=== PATIENT | female | born 1980 | race Caucasian/White ===

== ENCOUNTER 2020-02-15 19:38 | Observation (INO) | payer OTHER, SELFPAY ==
--- NOTE | ~2020-02-15 | CT_ITS ---
EXAMINATION: CTA chest PE protocol EXAM DATE: 02/16/2020 14:54 INDICATION: Tachycardia, mid chest pain. TECHNIQUE: Spiral CTA of the chest (pulmonary arteries) was performed with 100 cc Omnipaque 350 intr avenous contrast injection. Images were acquired during the pulmonary arterial phase. Coronal maxi mum intensity projection 3D-reconstructions were created by the technologist on dedicated workstation . Axial, coronal and sagittal reformatted images were reviewed. The dose-length product (DLP) for t his examination was 144.05 mGy-cm. The exposure was tailored according to patient size (auto mA exp osure control), and iterative reconstruction (ASIR) was used as additional dose reduction technique. There is no prior study for comparison. FINDINGS: Pulmonary arteries are well opacified and without intraluminal filling defects. No thora cic aortic dissection. The lungs are clear. There are no pleural or pericardial effusions. Trach eobronchial tree is patent. There is no mediastinal, hilar or axillary lymphadenopathy. There is no pneumothorax. Heart normal in size. No evidence of coronary arterial calcification. Upper abd omen is unremarkable. There is thoracic spondylosis without osteoblastic or osteolytic lesions iden tified. IMPRESSION: Normal CT pulmonary examination. Reviewed, dictated and finalized at location B.
[2020-02-15 19:43] LABS: Glucose Point of Care 461 (65-105)
[2020-02-15 20:10] VITALS: BP 113/83; PULSE 125; RESP 22; TEMP 37; O2SAT 100
[2020-02-15 20:26] LABS: Basophils Percent Auto 0.4 % (0.2-1.2); Eosinophils Absolute Auto 0.1 K/mm3 (0-0.3); Eosinophils Percent Auto 1.7 % (0-4.4); Hematocrit 42.9 % (37.0-47.0); Hemoglobin 15.5 g/dL (12.0-15.0); Immature Granulocyte Absolute 0.01 K/mm3 (0.00-0.031); Immature Granulocyte Percent A 0.2 % (0-0.5); Lymphocytes Absolute Auto 1.62 K/mm3 (0.9-3.2); Lymphocytes Percent Auto 34.1 % (18.3-44.2); Mean Corpuscular HGB Conc 36.1 g/dl (32-36); Mean Corpuscular Hemoglobin 31.5 pg (26-34); Mean Corpuscular Volume 87.2 fl (80-100); Mean Platelet Volume 10.1 fl (7.4-10.4); Monocytes Absolute Auto 0.3 K/mm3 (0.1-0.6); Monocytes Percent Auto 6.5 % (2.6-8.5); Neutrophils Absolute Auto 2.7 K/mm3 (1.3-6.7); Neutrophils Percent Auto 57.1 % (45.5-73.1); Platelet Count Result 323 k/mm3 (150-375); Red Blood Count 4.92 M/mm3 (4.2-5.4); Red Cell Distribution Width 11.3 % (11.5-14.5); White Blood Count 4.8 K/mm3 (4.5-10.0)
[2020-02-15 21:06] LABS: Basophils Percent Auto 0.4 % (0.2-1.2); Eosinophils Absolute Auto 0.1 K/mm3 (0-0.3); Eosinophils Percent Auto 1.8 % (0-4.4); Hematocrit 41.4 % (37.0-47.0); Hemoglobin 14.9 g/dL (12.0-15.0); Immature Granulocyte Absolute 0.01 K/mm3 (0.00-0.031); Immature Granulocyte Percent A 0.2 % (0-0.5); Lymphocytes Absolute Auto 1.33 K/mm3 (0.9-3.2); Lymphocytes Percent Auto 29.7 % (18.3-44.2); Mean Corpuscular Hemoglobin 31.8 pg (26-34); Mean Corpuscular Volume 88.5 fl (80-100); Monocytes Absolute Auto 0.4 K/mm3 (0.1-0.6); Monocytes Percent Auto 7.8 % (2.6-8.5); Neutrophils Absolute Auto 2.7 K/mm3 (1.3-6.7); Neutrophils Percent Auto 60.1 % (45.5-73.1); Platelet Count Result 299 k/mm3 (150-375); Red Blood Count 4.68 M/mm3 (4.2-5.4); Red Cell Distribution Width 11.7 % (11.5-14.5); White Blood Count 4.5 K/mm3 (4.5-10.0)
[2020-02-15 21:22] LABS: Beta-Hydroxybutyrate/Acetoacetate 2.85 mmol/L (0.02-0.27)
[2020-02-15 21:25] LABS: Alanine Aminotransferase 25 U/L (4-35); Albumin Level 4.2 g/dL (3.5-5.1); Alkaline Phosphatase 129 U/L (38-126); Aspartate Amino Transferase 30 U/L (14-36); Bilirubin,Total 0.4 mg/dL (0.2-1.3); Blood Urea Nitrogen 9 mg/dL (7-17); Calcium 8.9 mg/dL (8.4-10.2); Carbon Dioxide 26 mmol/L (22-30); Chloride 95 mmol/L (98-107); Estimated CRCL calculation 150 ml/min; Estimated Glomerular Filt Rate > 60; Glucose 538 mg/dL (65-105); Magnesium 1.7 mg/dL (1.6-2.3); Phosphorus 4.1 mg/dL (2.5-4.5); Potassium 3.2 mmol/L (3.4-5.0); Sodium 134 mmol/L (137-145)
[2020-02-15 22:35] LABS: Add Urine Microscopic? YES; Appearance Urine Clear (Clear); Bilirubin Urine Negative (Negative); Blood Urine Negative (Negative); Color Urine Colorless (Yellow); Glucose Urine UA 3+ mg/dL (Negative); Ketones Urine 2+ mg/dL (Negative); Leukocyte Esterase Ur Negative LEU/UL (Negative); Mucus Urine Rare /lpf; Nitrate Urine Negative (Negative); Protein Urine Negative (Negative); RBC Urine 0-2 /hpf (0-2); Squamous Epithelial Cell Urine Rare /hpf (Few); Urobilinogen Urine Negative mg/dL (<2.0); WBC Urine 0-3 /hpf
[2020-02-15 22:40] LABS: Specific Grav Ur 1.039 (1.001-1.035)
[2020-02-15 22:55] LABS: Alveolar/Arterial O2 Gradient 12.6 mmHg; Base Excess ABG -1.6 mEq/l (+/-2.0); Carboxyhemoglobin 0.5 % THb (0-2.0); Fractional Inspired Oxygen 21 %; HCO3 ABG 22.4 mEq/l (22.0-26.0); Methemoglobin ABG 0.4 %THb (0-1.5); Oxygen Content ABG 19.6 %vol (16.0-22.0); Oxygen Saturation ABG 97.4 % (95.0-100.0); Oxyhemoglobin 95.9 % THb (90.0-100.0); PCO2 ABG 35.5 mmHg (35.0-45.0); PO2 ABG 94.6 mmHg (80.0-100.0); Reduced Hemoglobin 3.2 %THb (0-5.0); Total Hemoglobin 14.5 g/dL (12.0-18.0); pH ABG 7.417 (7.350-7.450)
[2020-02-15 22:57] LABS: Device ROOM AIR; Site Drawn LEFT BRACHIAL
[2020-02-15] MEDS: SODIUM CHLORIDE 0.9% IV 1,000 ML 999 ML IV CONT (23:28)
[2020-02-16] VITALS (9 sets, daily range): BP systolic 106–124; BP diastolic 58–80; PULSE 84–112; RESP 16–20; TEMP 36.6–37.7; O2SAT 90–100; BMI 19.7
--- NOTE | 2020-02-16 00:01 | ED.GENADULT ---
HPI - General Adult General Chief complaint: Recheck/Abnormal Lab/Rx Stated complaint: abnormal labs, possible new diabetic Time Seen by Provider: 02/15/20 22:08 History of Present Illness HPI narrative: Patient is a 39-year-old female who presents the ER with abnormal outpatient labs. Reports that she has been without a normal period since March. She is being worked up by Dr. Abreu and found that her hemoglobin A1c was 14%. Patient reports she has had polydipsia and polyuria. She feels like she has [place] at this time. She reports 15 pound weight loss over the last year. She is also recently been diagnosed with celiac disease and has daily diarrhea. Patient does report she has had increased blurring of vision over the last couple of months and is set to see an eye doctor tomorrow. Related Data Home Medications Medication Instructions Recorded Confirmed multivit with min-folic acid 0.4 mg PO DAILY 02/16/20 02/16/20 [Adult One Daily Multivitamin] thiamine HCl (vitamin B1) 100 mg PO DAILY 02/16/20 02/16/20 Allergies Allergy/AdvReac Type Severity Reaction Status Date / Time codeine Allergy Unknown Hives Verified 02/16/20 01:12 gluten Allergy Gastrointestinal Verified 02/16/20 01:12 Upset ibuprofen Allergy Anaphylaxis Verified 02/16/20 01:53 Review of Systems Review of Systems: All systems reviewed & are unremarkable except as noted in HPI and below Constitutional: Constitutional: Denies chills, Denies fever(s) and Denies weakness ENT: Denies nasal congestion and Denies sore throat Cardiovascular: Cardiovascular: Denies chest pain Respiratory: Respiratory: Denies cough, Denies dyspnea and Denies wheezing Gastrointestinal: Gastrointestinal: Denies abdominal pain, Reports diarrhea, Denies nausea and Denies vomiting Genitourinary: Genitourinary: Reports nocturia and Denies dysuria Endocrine: Endocrine: Reports polydipsia and Reports polyuria PMF Past Medical History Medical History (Updated 02/16/20 @ 02:35 by Juan Johnston MD) Celiac disease Surgical History Surgical History (Updated 02/16/20 @ 01:19 by Saulo Rosales MD) No pertinent past surgical history Family History Family History (Updated 02/16/20 @ 02:09 by Olamide Arechiga RN) Father Hypertension Grandparent Diabetes mellitus Goiter Mother Hyperthyroidism Other Breast cancer Sibling Lupus Bipolar 1 disorder Autism Social History Social History Smoking status: Never smoker Alcohol intake: current Drinks per week: 1 Substance use: never Substance use type: does not use Gender identity (if verbalized by the patient): Female Spiritual care concerns: No Exam Narrative: Exam Narrative: GENERAL: Well-appearing, well-nourished, and in no acute distress. HEAD: Normocephalic, atraumatic. EYES: PERRL and left eye strabismus CHEST: Clear to auscultation. No respiratory distress. HEART: Tachycardic and regular. normal peripheral pulses. ABDOMEN: Soft, nontender, nondistended. EXTREMITIES: Normal range of motion. No edema. SKIN: Warm, dry, no rash. NEURO: Alert and oriented x3. PSYCH: Normal mood and affect. Course Course Emergency Course: Glucose going down with hydration. Admit to hospital service for observation and diabetic management. Vital Signs Vital signs: Vital Signs Temperature 98.6 F 02/15/20 20:10 Pulse Rate 125 H 02/15/20 20:10 Respiratory Rate 22 H 02/15/20 20:10 Blood Pressure 113/83 02/15/20 20:10 Pulse Oximetry 100 02/15/20 20:10 Temperature 99.0 F 02/16/20 01:30 Pulse Rate 112 H 02/16/20 01:44 Respiratory Rate 20 02/16/20 01:44 Blood Pressure 118/67 02/16/20 01:44 Pulse Oximetry 100 02/16/20 01:44 Medical Decision Making Vital Signs Vital Signs: Vital Signs Temperature 98.6 F 02/15/20 20:10 Pulse Rate 125 H 02/15/20 20:10 Respiratory Rate 22 H 02/15/20 20:10 Blood Pressure 113/83 02/15/20 20:10 Pulse
[2020-02-16 00:16] LABS: Glucose Point of Care 308 (65-105)
[2020-02-16] MEDS: SODIUM CHLORIDE 0.9% IV 1,000 ML 999 ML IV CONT (00:17)
--- NOTE | 2020-02-16 01:41 | ADMGEN ---
This patient, John Campos, was admitted to [facility] Surg Room 319-01 on 02/16/2020 at 0130. Patient/family oriented to hospital policies and general routines including ID bracelet, bed and alarms, visiting hours, pain management, procedures, bathroom and other care routines, personal items, smoking policy, room service/diet, and visiting hours. Valuables list has been completed. Information on how to activate the Rapid Response Team has been discussed. Patient/Family are encouraged to report perceived risks to care and to ask questions if they do not understand what they are told or what they should do.
[2020-02-16] MEDS: SODIUM CHLORIDE 0.9% IV 1,000 ML 125 ML IV CONT (01:54)
--- NOTE | 2020-02-16 02:16 | PM.IMHP ---
H&P: HPI History of Present Illness Chief complaint: hyperglycemia Narrative: This is a pleasant 39 year old female with known history of celiac disease who has been seeing gynecology secondary to not having a menstrual period since this past March. The patient has had increased thirst and increased urinary frequency over the past few months. She also reports a 10 pound weight lost since September. She also has had 6 yeast infections over the course of this past year. The patient has only recently been diagnosed with celiac disease. Her OIL AND GAS SUPERINTENDENT checked her HgbA1c which came back at 14%. Tonight in the ER the patient was evaluted and found to have an elevated blood glucose of 538 mg/dl and positive serum ketones. At this time her anion gap is not elevated. The patient was treated with 2 liters of normal saline IV in the ER. She also reports diarrhea, lower extremity numbness and blurry vision recently. She denies any fevers, chills, shortness of breath, chest pain, abdominal pain, nausea, vomiting, dysuria, or rectal bleeding. Review of Systems Review of Systems: All systems reviewed & are unremarkable except as noted in HPI and below PMFSH Past Medical History Medical History (Updated 02/16/20 @ 02:35 by Juan Johnston MD) Celiac disease Surgical History Surgical History (Updated 02/16/20 @ 01:19 by Saulo Rosales MD) No pertinent past surgical history Family History Family History (Updated 02/16/20 @ 02:09 by Olamide Arechiga RN) Father Hypertension Grandparent Diabetes mellitus Goiter Mother Hyperthyroidism Other Breast cancer Sibling Lupus Bipolar 1 disorder Autism Social History Social History Smoking status: Never smoker Alcohol intake: current Drinks per week: 1 Substance use: never Substance use type: does not use Gender identity (if verbalized by the patient): Female Spiritual care concerns: No Meds Home Medications and Allergies Home Medications Medication Instructions Recorded Confirmed Type multivit with min-folic acid 0.4 mg PO DAILY 02/16/20 02/16/20 History [Adult One Daily Multivitamin] thiamine HCl (vitamin B1) 100 mg PO DAILY 02/16/20 02/16/20 History Allergies Allergy/AdvReac Type Severity Reaction Status Date / Time codeine Allergy Unknown Hives Verified 02/16/20 01:12 gluten Allergy Gastrointestinal Verified 02/16/20 01:12 Upset ibuprofen Allergy Anaphylaxis Verified 02/16/20 01:53 Vital Signs Vital Signs - 24 hr 02/15/20 20:10 02/16/20 00:10 02/16/20 01:44 Temperature 37.0 C Pulse Rate 125 H 98 112 H Respiratory Rate 22 H 20 20 Blood Pressure 113/83 117/58 L 118/67 Pulse Oximetry 100 99 100 02/16/20 01:53 Temperature 37.2 C Pulse Rate 92 Respiratory Rate 16 Blood Pressure 124/80 Pulse Oximetry 100 Exam Const: General: cooperative, alert and awake Nutritional Appearance: thin and underweight Orientation/consciousness: patient oriented x3 HENMT: Head: normal to inspection General nose exam: Normal external nose present Face and sinus: normal facial exam Mouth: Yes oropharynx normal and Yes other (dry mucous membranes++ ) Eyes: Pupils: Equal, round and reactive pupils present EOM: EOMs intact bilaterally Neck: Neck: supple and no JVD Thyroid: thyroid normal Lymphatic: lymphadenopathy not noted Resp: Effort & Inspection: normal respiratory effort Auscultation: clear to auscultation bilaterally Cardio: Rate: tachycardic Rhythm: regular rhythm Heart sounds: no murmurs GI: Inspection: normal to inspection Auscultation: normal bowel sounds Skin: General skin exam: normal color and no rashes or lesions noted Neuro: General: patient oriented x3 Cranial nerves: Yes CN's II-XII intact bilaterally and Yes Equal, round and reactive pupils present Speech: normal speech Motor exam (neuro): 5/5 motor strength present throughout Sensory Exam: normal sensation Extrem: General: normal t
[2020-02-16] MEDS: POTASSIUM CHLORIDE 20 MEQ TABLET 40 MEQ PO ×2 (03:03→08:41)
--- NOTE | 2020-02-16 05:20 | PC.NURSE ---
para educator notified for consult (left voicemail).
[2020-02-16 06:31] LABS: Basophils Percent Auto 0.5 % (0.2-1.2); Eosinophils Absolute Auto 0.1 K/mm3 (0-0.3); Eosinophils Percent Auto 1.1 % (0-4.4); Hematocrit 35.4 % (37.0-47.0); Hemoglobin 12.7 g/dL (12.0-15.0); Immature Granulocyte Absolute 0.01 K/mm3 (0.00-0.031); Immature Granulocyte Percent A 0.2 % (0-0.5); Lymphocytes Absolute Auto 1.54 K/mm3 (0.9-3.2); Lymphocytes Percent Auto 35.2 % (18.3-44.2); Mean Corpuscular HGB Conc 35.9 g/dl (32-36); Mean Corpuscular Hemoglobin 31.8 pg (26-34); Mean Corpuscular Volume 88.5 fl (80-100); Mean Platelet Volume 9.9 fl (7.4-10.4); Monocytes Absolute Auto 0.3 K/mm3 (0.1-0.6); Monocytes Percent Auto 7.8 % (2.6-8.5); Neutrophils Absolute Auto 2.4 K/mm3 (1.3-6.7); Neutrophils Percent Auto 55.2 % (45.5-73.1); Platelet Count Result 249 k/mm3 (150-375); Red Cell Distribution Width 11.2 % (11.5-14.5); White Blood Count 4.4 K/mm3 (4.5-10.0)
[2020-02-16 06:44] LABS: Blood Urea Nitrogen 6 mg/dL (7-17); Calcium 7.6 mg/dL (8.4-10.2); Carbon Dioxide 20 mmol/L (22-30); Chloride 104 mmol/L (98-107); Estimated CRCL calculation 224 ml/min; Estimated Glomerular Filt Rate > 60; Glucose 274 mg/dL (65-105); Potassium 3.3 mmol/L (3.4-5.0); Sodium 134 mmol/L (137-145)
[2020-02-16] MEDS: INSULIN ASPART (*BKC) 100 UNITS/ML SUB-Q ×3 (08:36→17:21)
[2020-02-16] MEDS: SODIUM CHLORIDE 0.9% IV 1,000 ML 75 ML IV CONT (08:42)
[2020-02-16] MEDS: INSULIN GLARGINE (*BKC) 100 UNITS/ML SUB-Q (08:44)
[2020-02-16] MEDS: THIAMINE HCL 100 MG TABLET PO (08:45)
[2020-02-16] MEDS: THERAPEUTIC MULTIVITAMINS/MINERALS TAB (*BKC) 1 TABLET PO (08:46)
[2020-02-16 08:53] LABS: Glucose Point of Care 240 (65-105)
[2020-02-16 10:09] LABS: Magnesium 1.4 mg/dL (1.6-2.3)
[2020-02-16] MEDS: MAGNESIUM SULFATE 3GM/D5W100ML 3 GM/100 ML BAG IVPB (13:16)
--- NOTE | 2020-02-16 13:56 | PM.IMPN ---
Progress Note: A&P Assessment and Plan (1) Hyperglycemia: Code(s): R73.9 - Hyperglycemia, unspecified Status: Acute Assessment and Plan: Secondary to uncontrolled newly diagnosed diabetes mellitus w/ HgbA1c of 14%. Serum glucose this morning was 274. I started her on Lantus 5 units subcu daily and continue the sliding scale insulin. in service educator has been consulted as well as the dietitian. Accuchecks, SSI Coverage, Continue IV hydration. Hypoglycemic protocol in place. She has an appointment with endocrinology in March. (2) Dehydration: Code(s): E86.0 - Dehydration Status: Acute Assessment and Plan: She reports feeling better after receiving IV fluids. Continue IV hydration. Monitor urine output and vital signs. (3) Hypokalemia: Code(s): E87.6 - Hypokalemia Status: Acute Assessment and Plan: KCL replacmeent. Monitor serum potassium. (4) Hypomagnesemia: Code(s): E83.42 - Hypomagnesemia Status: Acute Assessment and Plan: Mag was 1.4 this was replaced with magnesium IV 3 g. Will recheck magnesium in the morning. (5) Celiac disease: Code(s): K90.0 - Celiac disease Status: Chronic Assessment and Plan: gluten free diet. Additional Plan Date of service was 02/16/2020 at 01:30 hrs. Time Spent With Patient Time with patient: 25 - 35 minutes Subjective Date/time seen: 02/16/20 13:56 Interval history: Patient is a 39-year-old woman with a history of glucose intolerance, who presented to the emergency room after abnormal labs showed her serum glucose to be in the 400s, along with associated symptoms of frequent urination, increased thirst, weight loss, blurry vision, and numbness and tingling to her toes. Date of service 02/16/2020: Patient reports feeling better today after getting IV fluids overnight. She states after she has received the IV magnesium she feels like she has some palpitations, slight shortness of breath, and pain with taking a deep breath located to her right upper middle chest wall. Denies any pain to palpation of her chest wall. 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 She denies any fevers, chills, cough, nausea, vomiting, abdominal pain, constipation, leg swelling, calf pain or any other symptoms at this time. Review of Systems Review of Systems: All systems reviewed & are unremarkable except as noted in HPI and below Exam Narrative: Exam Narrative: General: 39-year-old woman sitting up in bed watching TV. Appears comfortable. In no acute distress. Skin: No jaundice or cyanosis. Good skin turgor. Neck: Full range of motion. Supple. Respiratory: Lungs are clear to auscultation bilaterally. No wheezing, rales or rhonchi. No bony chest wall tenderness. Cardiovascular: Slight tachycardic heart rate, regular rhythm, no murmur auscultated. Lower extremities: No lower extremity edema. Distal pulses are easily palpated. No calf tenderness to palpation. Gastrointestinal: The abdomen is soft, nontender and nondistended with active bowel sounds. Psychiatric: Lucid and oriented. Memory intact. Neurologic: No focal deficits. Speech is clear. No facial drooping. Objective Data Vital Signs Vital Signs: Vital Signs - 24 hr 02/15/20 20:10 02/16/20 00:10 02/16/20 01:30 Temperature 98.6 F 99.0 F Pulse Rate 125 H 98 92 Respiratory Rate 22 H 20 16 Blood Pressure 113/83 117/58 L 124/80 Pulse Oximetry 100 99 100 02/16/20 01:44 02/16/20 06:20 02/16/20 07:29 Temperature 99.4 F Pulse Rate 112 H 99 91 Respiratory Rate 20 20 18 Blood Pressure 118/67 116/74 Pulse Oximetry 100 90 97 02/16/20 10
--- NOTE | 2020-02-16 16:24 | PCDIET ---
Nutrition Consult for [facility] Complete: Pt current nutrition is DBCC/Gluten Free Nutrition recommendation: Agree Last recorded weight is 52.2 kg. Bowel Motility: Labs Reviewed:A1c 14 Glucose 240 Additional Notes: Pt was recently dx with celiac disease in July and now DM. 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 [facility] provided on a DBCC diet. Handouts and contact info provided. Pt encouraged to f/u in the outpatient center after d/c. We reviewed where carbs are found, importance of protein at meals, and eating consistently, as well as how to find carb amounts in foods and her needs per meal (45-60g). We reviewed resources for carb counting and recipes as well as baking with artificial sweeteners and making fun foods fit in a meal. We will continue to monitor every seven days.
[2020-02-16 17:20] LABS: Glucose Point of Care 303 (65-105)
[2020-02-16 17:24] LABS: Glucose Point of Care 233 (65-105)
[2020-02-16 20:06] LABS: Glucose Point of Care 276 (65-105)
[2020-02-17] MEDS: SODIUM CHLORIDE 0.9% IV 1,000 ML 75 ML IV CONT (02:14)
[2020-02-17] MEDS: INSULIN ASPART (*BKC) 100 UNITS/ML SUB-Q ×2 (03:15→12:50)
[2020-02-17 06:00] VITALS: BP 105/63; PULSE 85; RESP 18; TEMP 36.7; O2SAT 99
[2020-02-17 06:43] LABS: Hematocrit 40.4 % (37.0-47.0); Hemoglobin 13.9 g/dL (12.0-15.0); Mean Corpuscular HGB Conc 34.4 g/dl (32-36); Mean Corpuscular Hemoglobin 30.8 pg (26-34); Mean Corpuscular Volume 89.6 fl (80-100); Mean Platelet Volume 9.6 fl (7.4-10.4); Platelet Count Result 269 k/mm3 (150-375); Red Blood Count 4.51 M/mm3 (4.2-5.4); Red Cell Distribution Width 11.3 % (11.5-14.5); White Blood Count 5.1 K/mm3 (4.5-10.0)
[2020-02-17 06:55] LABS: Blood Urea Nitrogen 6 mg/dL (7-17); Calcium 8.6 mg/dL (8.4-10.2); Carbon Dioxide 22 mmol/L (22-30); Chloride 104 mmol/L (98-107); Estimated CRCL calculation 224 ml/min; Estimated Glomerular Filt Rate > 60; Glucose 280 mg/dL (65-105); Magnesium 1.7 mg/dL (1.6-2.3); Potassium 3.5 mmol/L (3.4-5.0); Sodium 135 mmol/L (137-145)
[2020-02-17 08:00] VITALS: O2SAT 99
[2020-02-17] MEDS: THERAPEUTIC MULTIVITAMINS/MINERALS TAB (*BKC) 1 TABLET PO (08:21)
[2020-02-17] MEDS: THIAMINE HCL 100 MG TABLET PO (08:22)
[2020-02-17 08:57] LABS: Glucose Point of Care 247 (65-105)
[2020-02-17] MEDS: MAGNESIUM SULF 2 GM/WATER 50ML 2 GM/50 ML BAG IVPB (09:14)
[2020-02-17] MEDS: POTASSIUM CHLORIDE 20 MEQ TABLET 40 MEQ PO (09:15)
[2020-02-17] MEDS: INSULIN GLARGINE (*BKC) 100 UNITS/ML 8 UNITS SUB-Q (09:17)
[2020-02-17 10:45] VITALS: BMI 19.7
[2020-02-17 13:07] LABS: Glucose Point of Care 259 (65-105)
--- NOTE | 2020-02-17 13:31 | PM.DS ---
DS: Admitting Diagnosis Admitting Diagnosis Admitting Diagnosis: Hyperglycemia, unspecified DS: Discharge Diagnosis Discharge Diagnosis (1) Diabetes mellitus, new onset: Code(s): E11.9 - Type 2 diabetes mellitus without complications Status: Acute Assessment and Plan: Secondary to uncontrolled newly diagnosed diabetes mellitus w/ HgbA1c of 14%. Serum glucose this morning was 280. I increased her to Lantus 8 units subcu daily and continue the sliding scale insulin. clinical staff educator has been consulted and evaluated the patient this afternoon. She educated patient on checking her glucose and educated herself on giving herself insulin injections with a pen. The patient states she does have a little bit of a needle phobia but she will be able to check her glucose and give herself her insulin without any issues. Patient states she has a follow-up appointment with radio control crane operator, Dr. Hagan, in March for further evaluation. She will follow-up with the parent educator and dietitian as an outpatient for further Education. She also needs to follow-up the primary care provider within 1 week of discharge for further evaluation and adjustments to be made on her insulin if necessary. The patient understands and agrees the plan all questions answered. (2) Dehydration: Code(s): E86.0 - Dehydration Status: Acute Assessment and Plan: She reports feeling better after receiving IV fluids. Stable for discharge (3) Hypokalemia: Code(s): E87.6 - Hypokalemia Status: Acute Assessment and Plan: KCL replacmeent. It is now stable at this time. (4) Hypomagnesemia: Code(s): E83.42 - Hypomagnesemia Status: Acute Assessment and Plan: Mag was 1.7 this was replaced with magnesium IV 2 g. It is stable at this time. (5) Celiac disease: Code(s): K90.0 - Celiac disease Status: Chronic Assessment and Plan: gluten free diet. (6) Chest pain: Code(s): R07.9 - Chest pain, unspecified Status: Acute Assessment and Plan: Yesterday during my examination she reported having substernal/right-sided chest discomfort when she took a deep breath. She also felt like her heart was racing and she was found to be slightly tachycardic. I ordered a CTA of her chest which was normal not showing any acute PEs, pneumonia or other abnormality. Today she denied any more chest discomfort or issues at this time. DS: Summary Hospital Course Reason for hospitalization: 39-year-old woman with a history of gluten intolerance, and was told by her primary care provider she is borderline diabetic in March 2019, presented to the emergency room with symptoms of increased thirst, increased urination frequency, weight loss, over the last few months. Initial vital signs showed temperature of 98.6?, blood pressure 113/83, tachycardic heart rate 125, respiratory rate 22, oxygen saturation 100% on room air. Labs showed normal CBC with differential, normal ABG, hyponatremia at 134, hypokalemia 3.2, serum glucose was 538. Beta hydroxybutyrate/acetoacetate 2.85. UA showed 3+ glucose, 2+ ketones. She Was admitted into the hospital with new diagnosis of diabetes, started on IV fluids for hydration, insulin, with a consult placed to parent educator and dietitian. Please see above under each diagnosis what transpired during her admission. Status at Discharge Cognitive/behavioral status at discharge: Stable, improved. Time Spent with Patient Time attestation: Total time spent providing and/or coordinating discharge services: Time spent: Greater than 30 minute
[2020-02-17 14:00] VITALS: BP 104/69; PULSE 93; RESP 18; TEMP 36.3; O2SAT 100
== END 2020-02-17 16:25 | disposition home or self-care (01) ==
LOC: ANHED 02-16 00:59 → ANH3MEDSUR 02-16 01:18
PROVIDERS: Physician Assistant; Admitting Provider Family Medicine; Emergency Provider Emergency Medicine; Visit Provider Internal Medicine
DX: E11.65 Type 2 diabetes mellitus with hyperglycemia (principal); K90.0 Celiac disease; E86.0 Dehydration; E87.6 Hypokalemia; E83.42 Hypomagnesemia; R07.9 Chest pain, unspecified
CPT/HCPCS: 36415; 36600; 71275; 80048; 80053; 81001; 81025; 82010; 82375; 82805; 83050; 83735; 84100; 85025; 85027; 96360; 96361; 96365; 96374; 99285; A9270; G0378; J1815; J3475; J7030; Q9967

== ENCOUNTER 2022-07-04 01:18 | Day surgery (SDC) | payer OTHER, SELFPAY ==
[2022-07-02 13:17] VITALS: BMI 24.9
[2022-07-04 08:25] VITALS: BP 128/79; PULSE 103; RESP 18; TEMP 37.1; O2SAT 99
--- NOTE | 2022-07-04 08:26 | SUR.PREOP ---
[facility] blood glucose reading 202 per patient. No need to recheck her blood sugar per Dr Landeros.
[2022-07-04] MEDS: LACTATED RINGERS 1,000 ML 150 ML IV CONT (08:28)
--- NOTE | 2022-07-04 08:54 | WPDANESEPPF ---
Anes - Initial Pre Proc Eval Procedure: Operation Date: 07/04/22 09:00 Proposed Procedures p Esophagogastroduodenoscopy EGD - Suleiman Bella MD Date/Time: 07/04/22 08:54 Surgeon: Suleiman Bella MD Pre Op Diagnosis: gastroparesis Patient Data Age: 41 Gender: F Height: 1.63 m Weight: 67.8 kg Last Vital Signs Temp 98.7 F 07/04/22 08:25 Pulse 103 H 07/04/22 08:25 Resp 18 07/04/22 08:25 BP 128/79 07/04/22 08:25 Pulse Ox 99 07/04/22 08:25 O2 Del Method Room Air 07/04/22 08:25 Allergies Allergy/AdvReac Type Severity Reaction Status Date / Time ibuprofen Allergy Severe Anaphylaxis Verified 07/02/22 13:14 codeine Allergy Unknown Hives Verified 07/02/22 13:14 gluten Allergy Unknown Gastrointestinal Verified 07/02/22 13:14 Upset Penicillins Allergy Unknown Verified 07/04/22 08:21 Sulfa (Sulfonamide Allergy Unknown Verified 07/04/22 08:21 Antibiotics) Home Medications Medication Instructions Recorded Confirmed Type multivitamin with minerals-folic 0.4 mg PO DAILY 02/16/20 07/02/22 History acid 0.4 mg tablet (Adult One Daily Multivitamin) thiamine HCl (vitamin B1) 100 mg 100 mg PO DAILY 02/16/20 07/02/22 History tablet duloxetine 20 mg capsule,delayed 20 mg PO DAILY #30 caps 03/08/21 07/02/22 Rx release gabapentin 300 mg capsule 600 mg PO TID 03/08/21 07/02/22 History insulin aspar prt-insulin aspart 1 sliding scale dose subcut 04/05/22 07/02/22 History 100 unit/mL (70-30) subcutaneous USEASDIRECTD soln (Novolog Mix 70-30 U-100 Insuln) insulin glargine 100 unit/mL (3 18 unit subcut BID 07/02/22 07/02/22 History mL) subcutaneous pen (Basaglar KwikPen U-100 Insulin) Patient hx anesthesia problems: none Family hx anesthesia problems: none Results Review: All pre-operative results and documents have been reviewed as part of the pre-operative evaluation. PMFSH Past Medical History Medical History (Updated 04/05/22 @ 15:03 by Suleiman Bella MD) Bloating Depression Joint pain Surgical History Surgical History H/O eye surgery No pertinent past surgical history Family History Family History Father Hypertension Grandparent Diabetes mellitus Goiter Mother Hyperthyroidism Other Breast cancer Sibling Lupus Bipolar 1 disorder Autism Social History Social History (Updated 04/05/22 @ 14:41 by Elizabeth Martinez CMA) Smoking status: Never smoker Alcohol intake: current Drinks per week: 1 Alcohol use details: social Substance use: never Living arrangements: with family Gender identity (if verbalized by the patient): Female Spiritual care concerns: No Anes - Eval Final PreProcedure Day of Procedure 07/04/22 08:54 Patient weight: normal Heart: regular rate and rhythm Lungs: clear to auscultation Airway: Mallampati scale class II Neurological: alert and oriented Last oral intake: >/= 8 hours ASA classification: II Emergent: no Anesthetic plan: proceed Anesthesia type and monitoring: general GIVS and standard monitoring Results Review: All pre-operative results and documents have been reviewed as part of the pre-operative evaluation. Informed Consent: The patient's anesthetic plan and its attendant risks and benefits were discussed with the patient/family/POA. Questions were solicited and answers provided to the satisfaction of the patient/family/POA.
--- NOTE | 2022-07-04 09:20 | PM.HPGS ---
History of Present Illness History of Present Illness Consent: Risks, benefits, and alternatives have been discussed and questions answered. Patient agrees to proceed with procedure. Chief complaint: gastroparesis Narrative: Jonh Campos is a 41 year old female with DM and diagnosed with gastroparesis, also with bloating and was told that had celiac allery by blood test- on a special diet but never had egd Review of Systems Constitutional: Constitutional: Denies headache(s) and Denies weakness Eyes: Eyes: Denies blurry vision ENT: Reports Normal hearing present, Denies headache(s) and Denies neck pain Cardiovascular: Cardiovascular: Denies chest pain and Denies dyspnea Respiratory: Respiratory: Denies dyspnea Gastrointestinal: Gastrointestinal: Reports no additional gastrointestinal complaints Genitourinary: Genitourinary: Denies dysuria Musculoskeletal: Musculoskeletal: Denies neck pain Integumentary/Breasts: Skin/Breast: Denies dry skin Neurologic: Reports Normal hearing present, Denies headache(s) and Denies weakness Psychiatric: Psychiatric: Denies anxiety Endocrine: Endocrine: Denies change in body appearance Hematologic/Lymphatic: Hematologic/Lymphatic: Denies easy bleeding Allergic/Immunologic: Allergic/Immunologic: Denies urticaria PMFSH Past Medical History Medical History (Updated 07/04/22 @ 09:21 by Suleiman Bella MD) Bloating Depression Gluten-sensitive enteropathy Joint pain Surgical History Surgical History H/O eye surgery No pertinent past surgical history Family History Family History Father Hypertension Grandparent Diabetes mellitus Goiter Mother Hyperthyroidism Other Breast cancer Sibling Lupus Bipolar 1 disorder Autism Social History Social History (Updated 04/05/22 @ 14:41 by Elizabeth Martinez [facility]) Smoking status: Never smoker Alcohol intake: current Drinks per week: 1 Alcohol use details: social Substance use: never Living arrangements: with family Gender identity (if verbalized by the patient): Female Spiritual care concerns: No Meds Home Medications and Allergies Home Medications Medication Instructions Recorded Confirmed Type multivitamin with minerals-folic 0.4 mg PO DAILY 02/16/20 07/02/22 History acid 0.4 mg tablet (Adult One Daily Multivitamin) thiamine HCl (vitamin B1) 100 mg 100 mg PO DAILY 02/16/20 07/02/22 History tablet duloxetine 20 mg capsule,delayed 20 mg PO DAILY #30 caps 03/08/21 07/02/22 Rx release gabapentin 300 mg capsule 600 mg PO TID 03/08/21 07/02/22 History insulin aspar prt-insulin aspart 1 sliding scale dose subcut 04/05/22 07/02/22 History 100 unit/mL (70-30) subcutaneous USEASDIRECTD soln (Novolog Mix 70-30 U-100 Insuln) insulin glargine 100 unit/mL (3 18 unit subcut BID 07/02/22 07/02/22 History mL) subcutaneous pen (Basaglar KwikPen U-100 Insulin) Allergies Allergy/AdvReac Type Severity Reaction Status Date / Time ibuprofen Allergy Severe Anaphylaxis Verified 07/02/22 13:14 codeine Allergy Unknown Hives Verified 07/02/22 13:14 gluten Allergy Unknown Gastrointestinal Verified 07/02/22 13:14 Upset Penicillins Allergy Unknown Verified 07/04/22 08:21 Sulfa (Sulfonamide Allergy Unknown Verified 07/04/22 08:21 Antibiotics) Vital Signs Vital Signs - 24 hr 07/04/22 08:25 Temperature 98.7 F Pulse Rate 103 H Respiratory Rate 18 Blood Pressure 128/79 Pulse Oximetry 99 Oxygen Delivery Room Air Exam Const: General: comfortable and no acute distress HENMT: Face/Nose/Sinus: Normal nares present Eyes: General: appearance normal, both eyes and all related structures Neck: Neck: no JVD Resp: Auscultation: clear to auscultation bilaterally Cardio: Rate: regular rate Rhythm: regular rhythm GI:
[2022-07-04] MEDS: BENZOCAINE (*SP) 60 ML SPRAY CAN (HURRICAINE) 1 SPRAY MUCOUS MEM (09:21)
[2022-07-04 09:32] VITALS: BP 101/56; PULSE 74; RESP 18; O2SAT 100
[2022-07-04 09:42] VITALS: BP 114/72; PULSE 85; RESP 18; O2SAT 99
[2022-07-04 09:52] VITALS: BP 108/66; PULSE 81; RESP 18; O2SAT 100
== END 2022-07-04 10:01 | disposition home or self-care (01) ==
PROVIDERS: PCP Family Medicine; Visit Provider Internal Medicine Gastroenterology
PROC: 0DJ08ZZ Inspection of Upper Intestinal Tract, Via Natural or Artificial Opening Endoscopic (ICD-10-PCS; CPT 43235; principal; 2022-07-04 09:00)
DX: R11.0 Nausea (principal); R14.0 Abdominal distension (gaseous); K90.41 Non-celiac gluten sensitivity; E11.43 Type 2 diabetes mellitus with diabetic autonomic (poly)neuropathy; K31.84 Gastroparesis; Z79.4 Long term (current) use of insulin; F32.A Depression, unspecified
CPT/HCPCS: 43239; 88305; J2001; J2704; J7120

== ENCOUNTER 2024-08-11 17:09 | Outpatient (CLI) | payer BC, SELFPAY ==
[2024-08-11 18:42] LABS: Beta HCG Quantitative < 2.39 mIU/ML
== END 2024-08-11 17:10 | disposition home or self-care (01) ==
LOC: ANHLAB 17:10
PROVIDERS: PCP Internal Medicine; Visit Provider Student in an Organized Health Care Education/Training Program
DX: N91.2 Amenorrhea, unspecified (principal)
CPT/HCPCS: 36415; 84702